=== PATIENT | male | born 1985 | race American Indian/Alaskan Native ===

== ENCOUNTER 2019-10-17 13:30 | Emergency (ER) | payer MEDICAID, OTHER ==
[2019-10-17] MEDS ORDERED: Ketorolac 60 MG/2 ML SDV IM ONE (15:29)
[2019-10-17] MEDS ORDERED: Ondansetron 4 MG Tab.DIS PO ONE (15:29)
[2019-10-17] MEDS ORDERED: Bacitracin Oint 1 GM U/D Packet TOP ONE (15:35)
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
== END 2019-10-17 17:10 | disposition home or self-care (01) ==
LOC: JP.ED 13:30
DX: S80.212A Abrasion, left knee, initial encounter (principal); S80.211A Abrasion, right knee, initial encounter; R07.81 Pleurodynia; F17.210 Nicotine dependence, cigarettes, uncomplicated; Z88.1 Allergy status to other antibiotic agents; Y04.0XXA Assault by unarmed brawl or fight, initial encounter
CPT/HCPCS: 93005; 93010; 96372; 99285; A9270; J1885; 99283